=== PATIENT | male | born 1945 | race Caucasian/White ===

== ENCOUNTER 2023-03-13 10:12 | Inpatient (IN) ==
[2023-03-13] MEDS ORDERED: ONDANSETRON 4 MG/2 ML VIAL IV ONE (10:51)
[2023-03-13 11:19] LABS: POC Calcium, Ionized 1.16 (1.16-1.32); POC Creatinine 1.4 (0.6-1.2); POC Potassium 4.4 (3.3-5.1)
[2023-03-13 11:26] LABS: Basophils # (Auto) 0.02 K/mcL (0.00-0.30); Basophils % (Auto) 0.3 % (0.0-2.0); Eosinophils # (Auto) 0.05 K/mcL (0.00-0.70); Eosinophils % (Auto) 0.8 % (0.0-7.0); Hematocrit 39.9 % (40.1-51.0); Hemoglobin 14.1 g/dL (13.7-17.5); Lymphocytes # (Auto) 0.91 K/mcL (1.50-4.80); Lymphocytes % (Auto) 14.8 % (15.5-49.0); Mean Cell Volume 82.6 fL (80.0-100.0); Mean Corpuscular HGB Conc 35.3 g/dL (31.0-36.0); Mean Platelet Volume 9.9 fL (8.8-12.5); Monocytes # (Auto) 0.85 K/mcL (0.10-0.90); Monocytes % (Auto) 13.8 % (1.0-12.0); Neutrophils % (Auto) 70.1 % (38.0-78.0); Platelet Count 253 K/mcL (140-440); RBC 4.83 M/mcL (4.63-6.08); Red Cell Distribution Width 12.9 % (11.5-14.5); WBC 6.2 K/mcL (4.5-11.0)
[2023-03-13 11:52] LABS: Appearance,Urine CLEAR (Clear); Bilirubin,Urine Negative (Negative); Color,Urine YELLOW; Culture Indicated,Urine No; Glucose,Urine (UA) 50 mg/dL (Negative); Ketones,Urine Negative (Negative); Leukocyte Esterase,Urine Negative /uL (Negative); Mucus,Urine FEW /hpf; Nitrate,Urine Negative (Negative); Protein,Urine 100 mg/dL (Negative); Specific Gravity,Urine 1.013 (1.000-1.035); Urine Hyaline Cast 1 /lph (0-2); Urine RBC 18 /hpf (0-3); Urine Squamous Epithelial Cell < 1 /hpf (0-4); Urine WBC 2 /hpf (0-4); Urobilinogen,Urine Negative
[2023-03-13 12:09] LABS: Creatinine,Urine Random 107.3 mg/dL (39.0-259.0)
[2023-03-13 12:35] LABS: ALT/SGPT 14 U/L (<40); AST/SGOT 25 U/L (<40); Albumin 4.1 gm/dL (3.2-5.2); Alkaline Phosphatase 62 U/L (39-117); Bilirubin,Direct < 0.2 mg/dL (0-0.3); Bilirubin,Total 0.5 mg/dL (0.1-1.0); Globulin 2.9 gm/dL (2.2-3.7)
[2023-03-13 12:38] LABS: Blood Urea Nitrogen 15 mg/dL (8-23); Calcium 9.7 mg/dL (8.6-10.4); Carbon Dioxide 26 mmol/L (22-30); Chloride 81 mmol/L (96-108); Glomerular Filtration Rate 57; Glucose 123 mg/dL (70-105)
[2023-03-13] MEDS ORDERED: ACETAMINOPHEN 325 MG TABLET PO ONE (12:42)
--- NOTE | 2023-03-13 13:51 | Emergency Department Note ---
Abdominal Pain HPI General Chief Complaint: Flank Pain Stated Complaint: kidney pain Time Seen by Provider: 03/13/23 10:13 Source: patient Mode of arrival: ambulatory Limitations: no limitations History of Present Illness HPI Narrative: Narrative: This is an 78-year-old male who presents to the emergency department with right flank pain and intermittent right suprapubic pain. States the pain comes and goes without obvious alleviating or exacerbating factors he has been applying warm compress to his right flank. There is no skin changes there is no fevers chills he does report some difficulty initiating a stream with urination but no gross hematuria. Related Data Previous Rx's Medication Instructions Recorded blood-glucose meter ([employer] #1 ea 09/08/17 Verio IQ Meter kit) lancets 30 gauge (OneTouch Delica #100 ea 03/18/18 Lancets) metformin 850 mg tablet 850 mg PO BID #180 tabs 03/24/18 zolpidem 10 mg tablet 10 mg PO QHS PRN insomnia #60 tabs 03/24/18 pravastatin 40 mg tablet 40 mg PO QHS #90 tabs 09/05/18 blood sugar diagnostic (OneTouch #100 ea 10/13/18 Verio test strips) benazepril 20 1 tab PO QDAY HTN and protein in 10/19/22 mg-hydrochlorothiazide 12.5 mg the urine #90 tabs tablet Allergies Allergy/AdvReac Type Severity Reaction Status Date / Time Procaine [From Novocain] Allergy Severe Unconscious Verified 03/13/23 10:45 Review of Systems ROS ROS Narrative: Narrative: All systems ED: reviewed and negative except as stated. 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) DM w/o complication type II (Chronic) Hyperlipidemia (Chronic) Benign essential HTN (Chronic) Kidney stone (Chronic) Pituitary adenoma (Chronic) Prostatitis (Chronic 08/31/06) Renal colic (Chronic) Renal cyst (Chronic 03/25/15) Diabetes mellitus (Chronic) Hematuria (Chronic) Stage 3 chronic kidney disease (Acute) CKD stage G3a/A2, GFR 45-59 and albumin creatinine ratio 30-299 mg/g (Chronic) Hematuria with proteinuria (Chronic) Acute hyponatremia (Acute) Medical History (Updated 03/13/23 @ 14:07 by Valente Kauffman MD) Benign essential HTN HILDA hydrochlorothiazide well-controlled on a combination BPH (benign prostatic hypertrophy) with urinary obstruction (08/23/06) Diabetes mellitus DM w/o complication type II routine labs, continue same meds, review in 3mos. Glomerulonephritis Gynecomastia Hyperlipidemia Kidney stone Obstructed, bladder neck (07/28/13) Pituitary adenoma Prostatitis (08/31/06) Renal colic Renal cyst (03/25/15) CT done at [facility] Retention, urine Sinusitis likely secondary to tooth abscess, now resolved with appropriate dental care UTI (lower urinary tract infection) (05/02/07) Vasovagal syncope related to dehydration and likely iatrogenic hypotension. Surgical History Bladder neck contracture Incision History of colonoscopy (12/16/12) History of prostate surgery (10/18/12) [facility] History of tonsillectomy Hx of knee surgery S/P cystourethroscopy with dilation of urethral stricture (10/18/12) [facility] Family History Unknown No problems noted. Social History Smoking Status: Never smoker Alcohol Intake Frequency: does not drink Substance Use: does not use Exam Narrative Narrative: Narrative: Vital signs noted General: Awake. Alert. No distress. HEENT: NCAT PERRL EOMI. No conjunctivitis. Membranes moist. Neck: Supple, trachea midline Cardiovascular: RRR. No murmur. No rubs. No gallops. Respiratory: No respiratory distress. Breath sounds equal. Lungs clear. Gastrointestinal: Soft. No tenderness Right CVA tenderness to palpation Musculoskeletal: No pain. No soft tissue swelling. Good ROM. No signs injury Skin: Warm. Dry. No rash Neurologic: Alert and oriented x3 moves all extremities equally and fully, speech is fluent face is symmetric General Limitations: no limitations Course Vital Signs Vital signs: Vital Signs Temperature 97.0 F 03/13/23 10:14 Pulse Rate 97 H 03/13/23 10:14 Respiratory Rate 16 03/13/23 10:14 Blood Pressure 133/84 03/13/23 10:14 Pulse Oximetry (%) 96 03/13/23 10:14 Oxygen Delivery Method Room Air 03/13/23 10:14 Temperature 97.0 F 03/13/23 10:14 Pulse Rate 81 03/13/23 13:28 Respiratory Rate 16 03/13/23 10:14 Blood Pressure 136/86 03/13/23 13:00 Pulse Oximetry (%) 100 03/13/23 13:28 Oxygen Delivery Method Room Air 03/13/23 10:14 MDM MDM Narrative Medical decision making narrative: Narrative: This is an 78-year-old male who presents to the emergency department with right flank pain and suprapubic pain states his symptoms have been going on for about a week. After review of patient's chart patient does see Dr. Hooker for microscopic hematuria and proteinuria. It is kind of unclear if his flank and bladder pain is new today. Urine analysis is not suggestive of infection. I did obtain a noncontrasted CT scan which did not show any evidence of urinary tr act calculi. There was no obvious hydronephrosis. Patient was emptying his bladder his postvoid residual was 90 cc. Patient's kidney function today is not significantly changed from his baseline. His GFR appears to be consistent with the last few lab draws. Patient's sodium on [id number] testing was 120 the lab confirmed that it was 118 this is in the setting of normal blood glucose. Patient is slightly hypoosmolar. Overall the patient appears euvolemic. The patient does state that he has been increasing his water intake because he thought that that would help his kidney and bladder pain. Does not appear patient is on any thiazide diuretics. This is is significantly lower than just a few months ago. Lab Data 03/13/23 10:42 03/13/23 10:42 Labs: Lab Results 03/13/23 03/13/23 03/13/23 Range/Units 10:36 10:42 10:42 WBC 6.2 (4.5-11.0) K/mcL RBC 4.83 (4.63-6.08) M/mcL Hgb 14.1 (13.7-17.5) g/dL Hct 39.9 L (40.1-51.0) % POC Hct (41-55) MCV 82.6 (80.0-100.0) fL MCH 29.2 (26.0-34.0) pg MCHC 35.3 (31.0-36.0) g/dL RDW 12.9 (11.5-14.5) % Plt Count 253 (140-440) K/mcL MPV 9.9 (8.8-12.5) fL Immature Gran % (Auto) 0.2 (0.0-0.5) % Neut % (Auto) 70.1 (38.0-78.0) % Lymph % (Auto) 14.8 L (15.5-49.0) % [place] % (Auto) 13.8 H (1.0-12.0) % Eos % (Auto) 0.8 (0.0-7.0) % Baso % (Auto) 0.3 (0.0-2.0) % Lymph # (Auto) 0.91 L (1.50-4.80) K/mcL [place] # (Auto) 0.85 (0.10-0.90) K/mcL Eos # (Auto) 0.05 (0.00-0.70) K/mcL Baso # (Auto) 0.02 (0.00-0.30) K/mcL Immature Gran # 0.01 (0.00-0.05) K/mcl Absolute Neutrophils 4.32 (1.80-8.00) K/mcL POC Sodium (133-145) Sodium 118 L* (133-145) mmol/L POC Potassium (3.3-5.1) Potassium 4.4 (3.3-5.1) mmol/L POC Chloride (96-108) Chloride 81 L (96-108) mmol/L Carbon Dioxide 26 (22-30) mmol/L POC Total CO2 (22-30) Anion Gap 11.0 (8.0-16.0) POC BUN (6-20) BUN 15 (8-23) mg/dL Creatinine 1.2 (0.7-1.2) mg/dL POC Creatinine (0.6-1.2) GFR Calculation 57 Glucose 123 H (70-105) mg/dL POC Glucose (70-105) Osmolality 267 L (280-300) mOSM/kg Calcium 9.7 (8.6-10.4) mg/dL POC WB Ioniz Calcium (1.16-1.32) Total Bilirubin 0.5 (0.1-1.0) mg/dL Direct Bilirubin < 0.2 (0-0.3) mg/dL AST 25 (<40) U/L ALT 14 (<40) U/L Alkaline Phosphatase 62 (39-117) U/L Total Protein 7.0 (5.9-8.4) gm/dL Albumin 4.1 (3.2-5.2) gm/dL Globulin 2.9 (2.2-3.7) gm/dL Lipase 30 (7-60) U/L Urine Color Urine Appearance (Clear) Urine pH (5.0-9.0) Ur Specific [place] (1.000-1.035) Urine Protein (Negative) mg/dL Urine Glucose (UA) (Negative) mg/dL Urine Ketones (Negative) mg/dL Urine Occult Blood (Negative) mg/dL Urine Nitrate (Negative) Urine Bilirubin (Negative) mg/dL Urine Urobilinogen mg/dL Ur Leukocyte Esterase (Negative) /uL Urine RBC (0-3) /hpf Urine WBC (0-4) /hpf Ur Squamous Epith Cells (0-4) /hpf Urine Bacteria (0) /hpf Hyaline Casts (0-2) /lph Urine Mucus (None) /hpf Ur Culture Indicated? Urine Osmolality (80-1000) mOSM/kg Ur Random Creatinine (39.0-259.0) mg/dL Ur Random Sodium mmol/L Urine Urea Nitrogen 490 mg/dL 03/13/23 03/13/23 03/13/23 Range/Units 11:01 11:02 11:25 WBC (4.5-11.0) K/mcL RBC (4.63-6.08) M/mcL Hgb (13.7-17.5) g/dL Hct (40.1-51.0) % POC Hct 45.0 (41-55) MCV (80.0-100.0) fL MCH (26.0-34.0) pg MCHC (31.0-36.0) g/dL RDW (11.5-14.5) % Plt Count (140-440) K/mcL MPV (8.8-12.5) fL Immature Gran % (Auto) (0.0-0.5) % Neut % (Auto) (38.0-78.0) % Lymph % (Auto) (15.5-49.0) % [place] % (Auto) (1.0-12.0) % Eos % (Auto) (0.0-7.0) % Baso % (Auto) (0.0-2.0) % Lymph # (Auto) (1.50-4.80) K/mcL [place] # (Auto) (0.10-0.90) K/mcL Eos # (Auto) (0.00-0.70) K/mcL Baso # (Auto) (0.00-0.30) K/mcL Immature Gran # (0.00-0.05) K/mcl Absolute Neutrophils (1.80-8.00) K/mcL POC Sodium 120 L (133-145) Sodium (133-145) mmol/L POC Potassium 4.4 (3.3-5.1) Potassium (3.3-5.1) mmol/L POC Chloride 84 L (96-108) Chloride (96-108) mmol/L Carbon Dioxide (22-30) mmol/L POC Total CO2 26.0 (22-30) Anion Gap (8.0-16.0) POC BUN 17 (6-20) BUN (8-23) mg/dL Creatinine (0.7-1.2) mg/dL POC Creatinine 1.4 H (0.6-1.2) GFR Calculation Glucose (70-105) mg/dL POC Glucose 129 H (70-105) Osmolality (280-300) mOSM/kg Calcium (8.6-10.4) mg/dL POC WB Ioniz Calcium 1.16 (1.16-1.32) Total Bilirubin (0.1-1.0) mg/dL Direct Bilirubin (0-0.3) mg/dL AST (<40) U/L ALT (<40) U/L Alkaline Phosphatase (39-117) U/L Total Protein (5.9-8.4) gm/dL Albumin (3.2-5.2) gm/dL Globulin (2.2-3.7) gm/dL Lipase (7-60) U/L Urine Color Yellow Urine Appearance Clear (Clear) Urine pH 5.0 (5.0-9.0) Ur Specific [place] 1.013 (1.000-1.035) Urine Protein 100 A (Negative) mg/dL Urine Glucose (UA) 50 A (Negative) mg/dL Urine Ketones Negative (Negative) mg/dL Urine Occult Blood 0.20 (Negative) mg/dL Urine Nitrate Negative (Negative) Urine Bilirubin Negative (Negative) mg/dL Urine Urobilinogen Negative mg/dL Ur Leukocyte Esterase Negative (Negative) /uL Urine RBC 18 H (0-3) /hpf Urine WBC 2 (0-4) /hpf Ur Squamous Epith Cells < 1 (0-4) /hpf Urine Bacteria None (0) /hpf Hyaline Casts 1 (0-2) /lph Urine Mucus Few A (None) /hpf Ur Culture Indicated? No Urine Osmolality 371 (80-1000) mOSM/kg Ur Random Creatinine 107.3 (39.0-259.0) mg/dL Ur Random Sodium 25 mmol/L Urine Urea Nitrogen mg/dL Discharge Plan Patient/Caregiver Discharge Instructions Pt seen by MUSIC TYPOGRAPHER/PA only: No Clinical Impression: Acute hyponatremia Patient Disposition: Xfer As Inpt ([facility]) Condition: Fair Follow up with: Alexsander Luong MD [Primary Care Provider] - Prescriptions: No Action (DME) lancets [[employer]20[employer] Delica Lancets] 30 gauge misc See Dose Instructions .ROUTE .MEDSUPPLY Qty: 100 4RF Dose Instruction: As directed Rx Instructions: Use to test blood sugar twice dialy. zolpidem 10 mg tablet 10 mg PO QHS PRN (Reason: insomnia) Qty: 60 3RF metformin 850 mg tablet 850 mg PO BID Qty: 180 3RF pravastatin 40 mg tablet 40 mg PO QHS Qty: 90 3RF (DME) blood sugar diagnostic [Grid20[employer]uch Verio test strips] strip See Dose Instructions .ROUTE .MEDSUPPLY Qty: 100 4RF Dose Instruction: As directed Rx Instructions: Use to test blood sugars twice daily. (DME) blood-glucose meter [[employer]20[employer]uch Verio IQ Meter] kit See Dose Instructions .ROUTE .MEDSUPPLY Qty: 1 0RF Dose Instruction: As directed Rx Instructions: As directed benazepril-hydrochlorothiazide 20-12.5 mg tablet 1 tab PO QDAY Qty: 90 3RF Rx Instructions: New dose
--- NOTE | 2023-03-13 14:45 | Internal Med History&Physical ---
HPI History of Present Illness Patient information: Note initiated : 03/13/23 at 2:40 pm Service Date, if different from initiated Date: [] Patient: Tino Nichols a 78 y/o M admitted on for kidney pain. Chief Complaint: [Flank pain, malaise] Chief complaint: Flank pain History of present illness: Mr. Nichols is a 78 year old M with a past medical history significant for BPH, diabetes mellitus type 2, hyperlipidemia, and CKD stage III who presents to the hospital with flank pain, bladder spasms and worsening electrolyte derangements. The patient states that he went to his primary care physician on Wednesday as he was having flank pain and bladder irritation. He had labs and a work-up performed however did not hear back the rest of the week. Last night, the patient experienced severe bladder spasms once again and decided to come into the ER for further management and evaluation. The patient denies any fevers or chills. He denies any hematuria. He states that he has been having to use heat pad continuously and is also taking Tylenol for the discomfort. On arrival he was hemodynamically stable and afebrile. Initial labs revealed a sodium of 118, and a creatinine of 1.4. CT abdomen pelvis is pending. Hospitalist service was asked admit the patient for further management and evaluation of his hyponatremia. Review of Systems All systems: reviewed and no additional remarkable complaints except as stated Constitutional Constitutional: Present as per HPI EENT Eyes: Present as per HPI; Absent blurry vision Cardiovascular Cardiovascular: Present as per HPI; Absent chest pain, dyspnea, dyspnea on exertion, leg edema or palpatations Respiratory Respiratory: Present as per HPI; Absent cough, dyspnea, dyspnea on exertion, wheezing or stridor Gastrointestinal Gastrointestinal: Present as per HPI; Absent abdominal pain, diarrhea, dysphagia, hematemesis, melena, nausea or vomiting Musculoskeletal Musculoskeletal: Present as per HPI; Absent joint swelling, limited range of motion, muscle cramps, muscle weakness or myalgias Integumentary Integumentary: Present as per HPI; Absent erythema, new lesions, rash or wounds Neurological Neurological: Present as per HPI; Absent abnormal gait, behavioral changes, focal weakness, headache(s), loss of vision, numbness, sensory deficit or syncope Endocrine Endocrine: Absent change in body appearance, fatigue or heat intolerance Hematologic/Lymphatic Hematologic/Lymphatic: Present as per HPI PFSH PFSH All Active Problems (Updated 03/13/23 @ 14:07 by Valente Kauffman MD) Obstructed, 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) DM w/o complication type II (Chronic) Hyperlipidemia (Chronic) Benign essential HTN (Chronic) Kidney stone (Chronic) Pituitary adenoma (Chronic) Prostatitis (Chronic 08/31/06) Renal colic (Chronic) Renal cyst (Chronic 03/25/15) Diabetes mellitus (Chronic) Hematuria (Chronic) Stage 3 chronic kidney disease (Acute) CKD stage G3a/A2, GFR 45-59 and albumin creatinine ratio 30-299 mg/g (Chronic) Hematuria with proteinuria (Chronic) Acute hyponatremia (Acute) Medical History (Updated 03/13/23 @ 14:07 by Valente Kauffman MD) Benign essential HTN HILDA hydrochlorothiazide well-controlled on a combination BPH (benign prostatic hypertrophy) with urinary obstruction (08/23/06) Diabetes mellitus DM w/o complication type II routine labs, continue same meds, review in 3mos. Glomerulonephritis Gynecomastia Hyperlipidemia Kidney stone Obstructed, bladder neck (07/28/13) Pituitary adenoma Prostatitis (08/31/06) Renal colic Renal cyst (03/25/15) CT done at [facility] Retention, urine Sinusitis likely secondary to tooth abscess, now resolved with appropriate dental care UTI (lower urinary tract infection) (05/02/07) Vasovagal syncope related to dehydration and likely iatrogenic hypotension. Surgical History Bladder neck contracture Incision History of colonoscopy (12/16/12) History of prostate surgery (10/18/12) [facility] History of tonsillectomy Hx of knee surgery S/P cystourethroscopy with dilation of urethral stricture (10/18/12) [facility] Family History Unknown No problems noted. Social History adopted: Yes household members: spouse housing: house marital status: occupational status: retired other: Has children frequency: 3-4 times per week smoking status: Never smoker alcohol intake frequency: does not drink substance use type: does not use MEDS/ALLERGIES Home Medications and Allergies Home Medications Medication Instructions Recorded Confirmed Type blood-glucose meter (OneTouch #1 ea 09/08/17 01/25/23 Rx Verio IQ Meter kit) lancets 30 gauge (OneTouch Delica #100 ea 03/18/18 01/25/23 Rx Lancets) metformin 850 mg tablet 850 mg PO BID #180 tabs 03/24/18 01/25/23 Rx zolpidem 10 mg tablet 10 mg PO QHS PRN insomnia #60 tabs 03/24/18 01/25/23 Rx pravastatin 40 mg tablet 40 mg PO QHS #90 tabs 09/05/18 01/25/23 Rx blood sugar diagnostic (OneTouch #100 ea 10/13/18 01/25/23 Rx Verio test strips) benazepril 20 1 tab PO QDAY HTN and protein in 10/19/22 01/25/23 Rx mg-hydrochlorothiazide 12.5 mg the urine #90 tabs tablet Allergies Allergy/AdvReac Type Severity Reaction Status Date / Time Procaine [From Novocain] Allergy Severe Unconscious Verified 03/13/23 10:45 EXAM Constitutional Vitals: Temp Pulse Resp BP Pulse Ox O2 Del Method 97.0 F 81 16 136/86 100 Room Air 03/13/23 10:14 03/13/23 13:28 03/13/23 10:14 03/13/23 13:00 03/13/23 13:28 03/13/23 10:14 General appearance: average body habitus Head Head exam: Present atraumatic, normal inspection and normocephalic Eye Eye exam: Present EOMI, normal appearance and PERRL; Absent conjunctival injection ENT ENT exam: Present normal exam; Absent mucous membranes dry Neck Neck exam: Present full ROM; Absent lymphadenopathy Respiratory Respiratory exam: Present normal respiratory exam and CTAB; Absent decreased breath sounds, respiratory distress or wheezes Cardiovascular Cardiovascular exam: Present normal rate and rhythm and RRR; Absent JVD GI/Abdominal GI/Abdominal exam: Present normal bowel sounds and soft; Absent diminished bowel sounds, distended, guarding, mass, rebound or tenderness Neurological Exam Neurological exam: Present alert, CN II-XII intact and oriented X3 Psychiatric Psychiatric exam: Present normal affect and normal mood Skin Skin exam: Present intact and warm; Absent erythema, pallor, petechiae or rash DATA Data Completed and Pending Labs: Labs from last 24 hours 03/13/23 03/13/23 03/13/23 11:25 11:02 11:01 WBC RBC Hgb Hct POC Hct 45.0 MCV MCH MCHC RDW Plt Count MPV Immature Gran % (Auto) Neut % (Auto) Lymph % (Auto) [place] % (Auto) Eos % (Auto) Baso % (Auto) Lymph # (Auto) [place] # (Auto) Eos # (Auto) Baso # (Auto) Immature Gran # Absolute Neutrophils POC Sodium 120 L Sodium POC Potassium 4.4 Potassium POC Chloride 84 L Chloride Carbon Dioxide POC Total CO2 26.0 Anion Gap POC BUN 17 BUN Creatinine POC Creatinine 1.4 H GFR Calculation Glucose POC Glucose 129 H Osmolality Calcium POC WB Ioniz Calcium 1.16 Total Bilirubin Direct Bilirubin AST ALT Alkaline Phosphatase Total Protein Albumin Globulin Lipase Urine Color Yellow Urine Appearance Clear Urine pH 5.0 Ur Specific [place] 1.013 Urine Protein 100 A Urine Glucose (UA) 50 A Urine Ketones Negative Urine Occult Blood 0.20 Urine Nitrate Negative Urine Bilirubin Negative Urine Urobilinogen Negative Ur Leukocyte Esterase Negative Urine RBC 18 H Urine WBC 2 Ur Squamous Epith Cells < 1 Urine Bacteria None Hyaline Casts 1 Urine Mucus Few A Ur Culture Indicated? No Urine Osmolality 371 Ur Random Creatinine 107.3 Ur Random Sodium 25 Urine Urea Nitrogen 03/13/23 03/13/23 03/13/23 10:42 10:42 10:36 WBC 6.2 RBC 4.83 Hgb 14.1 Hct 39.9 L POC Hct MCV 82.6 MCH 29.2 MCHC 35.3 RDW 12.9 Plt Count 253 MPV 9.9 Immature Gran % (Auto) 0.2 Neut % (Auto) 70.1 Lymph % (Auto) 14.8 L [place] % (Auto) 13.8 H Eos % (Auto) 0.8 Baso % (Auto) 0.3 Lymph # (Auto) 0.91 L [place] # (Auto) 0.85 Eos # (Auto) 0.05 Baso # (Auto) 0.02 Immature Gran # 0.01 Absolute Neutrophils 4.32 POC Sodium Sodium 118 L* POC Potassium Potassium 4.4 POC Chloride Chloride 81 L Carbon Dioxide 26 POC Total CO2 Anion Gap 11.0 POC BUN BUN 15 Creatinine 1.2 POC Creatinine GFR Calculation 57 Glucose 123 H POC Glucose Osmolality 267 L Calcium 9.7 POC WB Ioniz Calcium Total Bilirubin 0.5 Direct Bilirubin < 0.2 AST 25 ALT 14 Alkaline Phosphatase 62 Total Protein 7.0 Albumin 4.1 Globulin 2.9 Lipase 30 Urine Color Urine Appearance Urine pH Ur Specific [place] Urine Protein Urine Glucose (UA) Urine Ketones Urine Occult Blood Urine Nitrate Urine Bilirubin Urine Urobilinogen Ur Leukocyte Esterase Urine RBC Urine WBC Ur Squamous Epith Cells Urine Bacteria Hyaline Casts Urine Mucus Ur Culture Indicated? Urine Osmolality Ur Random Creatinine Ur Random Sodium Urine Urea Nitrogen 490 A/P Assessment and plan (1) BPH (benign prostatic hypertrophy) with urinary obstruction: Status: Chronic (2) DM w/o complication type II: Status: Chronic Comment: routine labs, continue same meds, review in 3mos. Qualifiers: Diabetes mellitus rodent exterminator insulin use: without mcfp use Qualifie d Code(s): E11.9 - Type 2 diabetes mellitus without complications (3) Hyperlipidemia: Status: Chronic (4) Benign essential HTN: Status: Chronic Comment: HILDA hydrochlorothiazide well-controlled on a combination (5) Stage 3 chronic kidney disease: Status: Acute (6) Acute hyponatremia: Status: Acute Narrative A/P Narrative: At this point it is unclear if the patient has renal calculi, prostatitis, or urinary tract infection. He is on BenzePrOhydrochlorothiazide which may also be contributing to his hyponatremia. He has had poor p.o. intake as of late due to the malaise. 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 It is a mixed picture. We will try IV fluids and monitor BMP every 6 hours. We will hold his home antihypertensives. We will follow-up on CT imaging and urinalysis. Time Spent With Patient Time: Total time spent is greater than 50% in coordination of care (as documented) at patient's floor/unit and/or counseling patient: Subsequent: Total time with patient: 50 - 65 Minutes
[2023-03-13] MEDS ORDERED: ONDANSETRON 4 MG/2 ML VIAL IV PRN (17:26)
[2023-03-13] MEDS ORDERED: SENNOSIDES 1 TABLET PO PRN (17:26)
[2023-03-13] MEDS ORDERED: LACTULOSE 20 GM/30 ML ORAL.SOL PO PRN (17:26)
[2023-03-13] MEDS ORDERED: 0.9 % SODIUM CHLORIDE 1,000 ML IV SCH (17:26)
[2023-03-13] MEDS ORDERED: cefTRIAXone 1 GM VIAL IV ONE (17:26)
[2023-03-13] MEDS: 0.9 % SODIUM CHLORIDE 10 ML SYRINGE IV SCH ×2 (17:57→21:25)
--- NOTE | 2023-03-13 18:02 | Cat Scan Report ---
CLINICAL INFORMATION: Right flank pain. History of stones COMPARISON: None. TECHNIQUE: 0.625 mm helical slices were obtained from the mid heart through the subtrochanteric regions. Following reconstruction, 2.5 mm sagittal, coronal and axial reformatted images were processed and reviewed at bone and soft tissue windows.The exam was performed using radiation dose optimization techniques including, but not limited to, automated exposure control, adjustment of the mA and/or kV according to patient size and use of iterative reconstruction technique. FINDINGS: The lung bases are clear. No effusions. The visualized heart is grossly normal. Abdominal images show the noncontrasted gallbladder and bile ducts, liver, both kidneys, adrenal glands, spleen, pancreas and aorta are normal in size, configuration and attenuation without focal lesion. There is no free air, free fluid or adenopathy. Pelvic images show normal noncontrasted urinary bladder, prostate and seminal vesicles. Large amount of stool is present within the colon and there are multiple sigmoid diverticuli noted the diverticulitis. The region of the appendix, small bowel and stomach are normal. Bone windows show no osseous abnormality. IMPRESSION: Large amount of colonic stool. No acute disease Interpreted and Authenticated by: Tyrone Campbell 03/13/23
[2023-03-13 19:59] LABS: Blood Urea Nitrogen 13 mg/dL (8-23); Calcium 9.4 mg/dL (8.6-10.4); Carbon Dioxide 25 mmol/L (22-30); Chloride 81 mmol/L (96-108); Glomerular Filtration Rate 63; Glucose 103 mg/dL (70-105)
[2023-03-13] MEDS: SIMVASTATIN 20 MG TABLET PO SCH (21:25)
[2023-03-13] MEDS: DOCUSATE SODIUM 100 MG CAPSULE PO SCH (21:25)
[2023-03-13] MEDS: ZOLPIDEM 5 MG TABLET PO PRN (21:25)
[2023-03-14 00:10] LABS: Blood Urea Nitrogen 14 mg/dL (8-23); Calcium 8.8 mg/dL (8.6-10.4); Carbon Dioxide 25 mmol/L (22-30); Chloride 85 mmol/L (96-108); Glomerular Filtration Rate 63; Glucose 92 mg/dL (70-105)
[2023-03-14] MEDS: 0.9 % SODIUM CHLORIDE 10 ML SYRINGE IV SCH ×3 (05:04→20:25)
[2023-03-14 05:14] LABS: Basophils # (Auto) 0.03 K/mcL (0.00-0.30); Basophils % (Auto) 0.5 % (0.0-2.0); Eosinophils # (Auto) 0.15 K/mcL (0.00-0.70); Eosinophils % (Auto) 2.6 % (0.0-7.0); Hematocrit 38.4 % (40.1-51.0); Hemoglobin 13.3 g/dL (13.7-17.5); Lymphocytes # (Auto) 1.59 K/mcL (1.50-4.80); Lymphocytes % (Auto) 27.9 % (15.5-49.0); Mean Cell Volume 82.9 fL (80.0-100.0); Mean Corpuscular HGB Conc 34.6 g/dL (31.0-36.0); Mean Platelet Volume 9.7 fL (8.8-12.5); Monocytes # (Auto) 0.73 K/mcL (0.10-0.90); Monocytes % (Auto) 12.8 % (1.0-12.0); Neutrophils % (Auto) 55.8 % (38.0-78.0); Platelet Count 232 K/mcL (140-440); RBC 4.63 M/mcL (4.63-6.08); Red Cell Distribution Width 13.1 % (11.5-14.5); WBC 5.7 K/mcL (4.5-11.0)
--- NOTE | 2023-03-14 09:42 | Internal Med Progress Note ---
SUBJECTIVE Subjective Patient information: Note initiated : 03/14/23 at 9:38 am Service Date, if different from initiated Date: [] Patient: Tino Nichols a 78 y/o M admitted on 03/13/23 for kidney pain. Chief Complaint: [Flank pain] Principal diagnosis: SIADH Interval history: History of present illness: Mr. Nichols is a 78 year old M with a past medical history significant for BPH, diabetes mellitus type 2, hyperlipidemia, and CKD stage III who presents to the hospital with flank pain, bladder spasms and worsening electrolyte derangements. The patient states that he went to his primary care physician on Wednesday as he was having flank pain and bladder irritation. He had labs and a work-up performed however did not hear back the rest of the week. Last night, the patient experienced severe bladder spasms once again and decided to come into the ER for further management and evaluation. The patient denies any fevers or chills. He denies any hematuria. He states that he has been having to use heat pad continuously and is also taking Tylenol for the discomfort. On arrival he was hemodynamically stable and afebrile. Initial labs revealed a sodium of 118, and a creatinine of 1.4. CT abdomen pelvis is pending. Hospitalist service was asked admit the patient for further management and evaluation of his hyponatremia. 03/14: The patient is quite forgetful and fixates on his home medications. The RN was present at the bedside to discuss plan of care. There are concerns that the patient may have cognitive impairment and undiagnosed dementia. Constitutional Vitals: Vital Signs Temp Pulse Resp BP Pulse Ox O2 Del Method 97.7 F 68 16 118/81 97 Room Air 03/14/23 04:00 03/14/23 06:03 03/14/23 06:03 03/14/23 06:03 03/14/23 06:03 03/14/23 06:03 Period Temp Pulse Resp BP Sys/Bush Pulse Ox O2 Del Method O2 Flow Rate Last 24 Hr 97.0 F-99.0 F 65-97 14-17 99-169/68-93 96-100 Room Air-Room Air Intake and Output 03/13/23 03/14/23 03/14/23 19:59 03:59 11:59 Intake Total 693 Output Total 375 900 325 Balance -375 -207 -325 Weight 70.307 kg 71.078 kg Intake & Output: Intake & Output 03/13/23 03/14/23 03/14/23 19:59 03:59 11:59 Intake Total 693 Output Total 375 900 325 Balance - Weight 70.307 kg 71.078 kg Intake: IV 333 Sodium Chloride 0.9% 1,000 ml @ 333 100 mls/hr IV .Q10H [facility] Rx#: [id number] Oral 360 Output: Void Amount 375 081 325 Other: Meal orange sherbet Percent of Meal Consumed 100% Feeding Ability Independent Urine Appearance Clear Clear Clear Urine Color Light Chanel Yellow Yellow Pale Pale Urine Odor Normal Normal # Voids 1 # [place] 0 Head Head exam: Present atraumatic and normal inspection Eye Eye exam: Present normal appearance ENT ENT exam: Present mucous membranes moist, normal exam and normal external ear exam Neck Neck exam: Present normal inspection Respiratory Respiratory exam: Present normal respiratory exam Cardiovascular Cardiovascular exam: Present normal rate and rhythm GI/Abdominal GI/Abdominal exam: Present normal bowel sounds Back Exam Back exam: Present normal inspection Neurological Exam Neurological exam: Present alert and oriented X3 Skin Skin exam: Present intact and warm OBJ DATA Labs 03/14/23 04:49 03/13/23 23:23 Labs: Abnormal Lab Results 03/14/23 03/13/23 03/13/23 04:49 23:23 17:53 Hgb 13.3 L Hct 38.4 L Lymph % (Auto) [place] % (Auto) 12.8 H Lymph # (Auto) POC Sodium Sodium 123 L 117 L* POC Chloride Chloride 85 L 81 L POC Creatinine Glucose POC Glucose Osmolality Urine Protein Urine Glucose (UA) Urine RBC Urine Mucus 03/13/23 03/13/23 03/13/23 11:02 11:01 10:42 Hgb Hct Lymph % (Auto) [place] % (Auto) Lymph # (Auto) POC Sodium 120 L Sodium 118 L* POC Chloride 84 L Chloride 81 L POC Creatinine 1.4 H Glucose 123 H POC Glucose 129 H Osmolality 267 L Urine Protein 100 A Urine Glucose (UA) 50 A Urine RBC 18 H Urine Mucus Few A 03/13/23 10:42 Hgb Hct 39.9 L Lymph % (Auto) 14.8 L [place] % (Auto) 13.8 H Lymph # (Auto) 0.91 L POC Sodium Sodium POC Chloride Chloride POC Creatinine Glucose POC Glucose Osmolality Urine Protein Urine Glucose (UA) Urine RBC Urine Mucus Meds: Medications Ceftriaxone Sodium (Ceftriaxone 1 Gm Vial) 1 gm IV Q24H [facility]; Protocol Docusate Sodium (Docusate Sodium 100 Mg Capsule) 100 mg PO BID [facility] Last Admin: 03/13/23 21:25 Dose: 100 mg Enoxaparin Sodium (Enoxaparin 40 Mg/0.4 Ml Syringe) 40 mg SQ DAILY [facility] Lactulose (Lactulose 20 Gm/30 Ml Oral.Afshan) 10 gm PO DAILYP PRN PRN Reason: Constipation Ondansetron HCl (Ondansetron 4 Mg/2 Ml Vial) 4 mg IV Q4HP PRN; Protocol PRN Reason: Nausea And Vomiting Senna (Sennosides 1 Tablet) 2 tab PO HSP PRN PRN Reason: Constipation Simvastatin (Simvastatin 20 Mg Tablet) 20 mg PO HS [facility] Last Admin: 03/13/23 21:25 Dose: 20 mg Sodium Chloride (0.9 % Sodium Chloride 10 Ml Syringe) 10 ml IV Q8 [facility] Last Admin: 03/14/23 05:04 Dose: 10 ml Zolpidem Tartrate (Zolpidem 5 Mg Tablet) 10 mg PO HSP PRN PRN Reason: Insomnia Last Admin: 03/13/23 21:25 Dose: 10 mg A/P Assessment and plan (1) BPH (benign prostatic hypertrophy) with urinary obstruction: Status: Chronic (2) DM w/o complication type II: Status: Chronic Comment: routine labs, continue same meds, review in 3mos. Qualifiers: Diabetes mellitus termite exterminator helper insulin use: without halfway use Qualified Code(s): E11.9 - Type 2 diabetes mellitus without complications (3) Hyperlipidemia: Status: Chronic (4) Benign essential HTN: Status: Chronic Comment: HILDA hydrochlorothiazide well-controlled on a combination (5) Stage 3 chronic kidney disease: Status: Acute (6) Acute hyponatremia: Status: Acute Narrative A/P Narrative: At this point it is unclear if the patient has renal calculi, prostatitis, or urinary tract infection. He is on BenzePrOhydrochlorothiazide which may also be contributing to his hyponatremia. He has had poor p.o. intake as of late due to the malaise. The patient's urine osmolality is less than 275, his urine sodium is greater than 20 and his urine osmolality is greater than 100 con sistent with SIADH. It is a mixed picture. We will try IV fluids and monitor BMP every 6 hours. We will hold his home antihypertensives. We will follow-up on CT imaging and urinalysis. #SIADH -There was no component of hypovolemia and IVF did not help as Na dropped slightly to 117. IVF were discontinued -The Na has improved to 123 this AM -Check BMP q12h -Continue 800cc fluid restriction, and may consider adding salt tabs #HTN -Holding home ACEI/HCTZ #DM2 -Holding home metformin -Continue ISS #Bladder spasm/flank pain -CT abdomen and pelvis unrevealing. Patient remains afebrile with normal WBC of 5.7 -Awaiting urine cx results. Continue empiric CTX -May need to f/u with Urology in outpatient setting for possible bladder spasms Time Spent With Patient Time: Total time spent is greater than 50% in coordination of care (as documented) at patient's floor/unit and/or counseling patient: Subsequent: Total time with patient: 25 - 34 minutes QUALITY VTE Deep Vein Thrombosis/Pulmonary Embolism Present on Admission: No
[2023-03-14] MEDS: DOCUSATE SODIUM 100 MG CAPSULE PO SCH ×2 (10:15→20:25)
[2023-03-14] MEDS: ENOXAPARIN 40 MG/0.4 ML SYRINGE SQ SCH (10:15)
[2023-03-14] MEDS: cefTRIAXone 1 GM VIAL IV SCH (10:15)
--- NOTE | 2023-03-14 14:22 | Internal Med Progress Note ---
SUBJECTIVE Subjective Patient information: Note initiated : 03/14/23 at 2:19 pm Service Date, if different from initiated Date: [] Patient: Tino Nichols a 78 y/o M admitted on 03/13/23 for kidney pain. Chief Complaint: [] Principal diagnosis: SIADH Interval history: History of present illness: Mr. Nichols is a 78 year old M with a past medical history significant for BPH, diabetes mellitus type 2, hyperlipidemia, and CKD stage III who presents to the hospital with flank pain, bladder spasms and worsening electrolyte derangements. The patient states that he went to his primary care physician on Wednesday as he was having flank pain and bladder irritation. He had labs and a work-up performed however did not hear back the rest of the week. Last night, the patient experienced severe bladder spasms once again and decided to come into the ER for further management and evaluation. The patient denies any fevers or chills. He denies any hematuria. He states that he has been having to use heat pad continuously and is also taking Tylenol for the discomfort. On arrival he was hemodynamically stable and afebrile. Initial labs revealed a sodium of 118, and a creatinine of 1.4. CT abdomen pelvis is pending. Hospitalist service was asked admit the patient for further management and evaluation of his hyponatremia. 03/14: The patient is quite forgetful and fixates on his home medications. The RN was present at the bedside to discuss plan of care. There are concerns that the patient may have cognitive impairment and undiagnosed dementia. 03/15 Review of Systems: denies headache/fever/chills/nausea/vomiting/chest or abdominal pain/cough/dyspnea/diarrhea. Otherwise see above. PHYSICAL EXAM General: Alert, Awake, No acute Distress Eyes/N/T: EOMI, no scleral icterus, Head/Neck: neck supple, full ROM, CV: RRR, No murmurs, Pulm: Clear b/l, no wheezing/rhonchi/rales, no respiratory distress Abd: soft, nontender, +BS x4 Ext: no clubbing/cyanosis/edema, nontender Neuro: Alert, no focal deficits, moves all extremities, , sensations intact b/l upper/lower Psychiatric: Skin: warm/dry, normal color Constitutional Vitals: Vital Signs Temp Pulse Resp BP Pulse Ox O2 Del Method 98.9 F 83 14 125/76 97 Room Air 03/14/23 08:01 03/14/23 11:22 03/14/23 11:22 03/14/23 10:01 03/14/23 11:22 03/14/23 06:03 Period Temp Pulse Resp BP Sys/Bush Pulse Ox O2 Del Method O2 Flow Rate Last 24 Hr 97.7 F-99.0 F 65-83 14-18 99-169/68-91 96-100 Room Air-Room Air Intake and Output 03/14/23 03/14/23 03/14/23 03:59 11:59 19:59 Intake Total 693 Output Total 900 625 Balance -207 -625 Weight 71.078 kg Intake & Output: Intake & Output 03/14/23 03/14/23 03/14/23 03:59 11:59 19:59 Intake Total 693 Output Total 900 625 Balance -207 -625 Weight 71.078 kg Intake: IV 333 Sodium Chloride 0.9% 1,000 ml @ 333 100 mls/hr IV .Q10H [facility] Rx#: [id number] Oral 360 Output: Void Amount 900 625 Other: Meal Breakfast Percent of Meal Consumed 100% Feeding Ability Independent Urine Appearance Clear Clear Urine Color Yellow Yellow Pale Pale Urine Odor Normal # Voids 1 # Emeses 0 OBJ DATA Labs 03/14/23 04:49 03/14/23 04:49 Labs: Abnormal Lab Results 03/14/23 03/13/23 03/13/23 04:49 23:23 17:53 Hgb 13.3 L Hct 38.4 L Lymph % (Auto) [place] % (Auto) 12.8 H Lymph # (Auto) POC Sodium Sodium 123 L 117 L* POC Chloride Chloride 85 L 81 L POC Creatinine Glucose POC Glucose Osmolality Urine Protein Urine Glucose (UA) Urine RBC Urine Mucus 03/13/23 03/13/23 03/13/23 11:02 11:01 10:42 Hgb Hct Lymph % (Auto) [place] % (Auto) Lymph # (Auto) POC Sodium 120 L Sodium 118 L* POC Chloride 84 L Chloride 81 L POC Creatinine 1.4 H Glucose 123 H POC Glucose 129 H Osmolality 267 L Urine Protein 100 A Urine Glucose (UA) 50 A Urine RBC 18 H Urine Mucus Few A 03/13/23 10:42 Hgb Hct 39.9 L Lymph % (Auto) 14.[address] [place] % (Auto) 13.8 H Lymph # (Auto) 0.91 L POC Sodium Sodium POC Chloride Chloride POC Creatinine Glucose POC Glucose Osmolality Urine Protein Urine Glucose (UA) Urine RBC Urine Mucus Meds: Medications Ceftriaxone Sodium (Ceftriaxone 1 Gm Vial) 1 gm IV Q24H [facility]; Protocol Last Admin: 03/14/23 10:15 Dose: 1 gm Docusate Sodium (Docusate Sodium 100 Mg Capsule) 100 mg PO BID [facility] Last Admin: 03/14/23 10:15 Dose: 100 mg Enoxaparin Sodium (Enoxaparin 40 Mg/0.4 Ml Syringe) 40 mg SQ DAILY [facility] Last Admin: 03/14/23 10:15 Dose: 40 mg Lactulose (Lactulose 20 Gm/30 Ml Oral.Afshan) 10 gm PO DAILYP PRN PRN Reason: Constipation Ondansetron HCl (Ondansetron 4 Mg/2 Ml Vial) 4 mg IV Q4HP PRN; Protocol PRN Reason: Nausea And Vomiting Senna (Sennosides 1 Tablet) 2 tab PO HSP PRN PRN Reason: Constipation Simvastatin (Simvastatin 20 Mg Tablet) 20 mg PO HS [facility] Last Admin: 03/13/23 21:25 Dose: 20 mg Sodium Chloride (0.9 % Sodium Chloride 10 Ml Syringe) 10 ml IV Q8 [facility] Last Admin: 03/14/23 05:04 Dose: 10 ml Zolpidem Tartrate (Zolpidem 5 Mg Tablet) 10 mg PO HSP PRN PRN Reason: Insomnia Last Admin: 03/13/23 21:25 Dose: 10 mg A/P Narrative A/P Narrative: A: #SIADH -There was no component of hypovolemia and IVF did not help as Na dropped slightly to 117. IVF were discontinued -The Na -serial sodium -Continue fluid restriction, and start salt tabs #HTN/HLD: -d/c home HCTZ, restart ACEI if necessary for BP #DM2: -Holding home metformin -Continue ISS #CKD III: #Bladder spasm/flank pain -CT abdomen and pelvis unrevealing. Patient remains afebrile with normal WBC of 5.7 -Awaiting urine cx results. Continue empiric ABX -May need to f/u with Urology in outpatient setting for possible bladder sp asms #Anxiety: On Ativan #ppx: lovenox Time Spent With Patient Time: Total time spent is greater than 50% in coordination of care (as documented) at patient's floor/unit and/or counseling patient: QUALITY VTE Deep Vein Thrombosis/Pulmonary Embolism Present on Admission: No
[2023-03-14] MEDS ORDERED: LORazepam 0.5 MG TABLET PO PRN (14:25)
[2023-03-14 14:55] LABS: ALT/SGPT 14 U/L (<40); AST/SGOT 21 U/L (<40); Albumin 3.7 gm/dL (3.2-5.2); Albumin/Globulin Ratio 1.4 (1.0-2.3); Alkaline Phosphatase 51 U/L (39-117); Bilirubin,Direct < 0.2 mg/dL (0-0.3); Bilirubin,Total 0.4 mg/dL (0.1-1.0); Blood Urea Nitrogen 12 mg/dL (8-23); Calcium 9.1 mg/dL (8.6-10.4); Carbon Dioxide 25 mmol/L (22-30); Chloride 84 mmol/L (96-108); Globulin 2.6 gm/dL (2.2-3.7); Glomerular Filtration Rate 57; Glucose 101 mg/dL (70-105); Lactate Dehydrogenase 142 U/L (135-225); Phosphorous 2.8 mg/dL (2.5-4.5); Triglycerides 65 mg/dL (<150); Uric Acid 5.3 mg/dL (2.5-8.0)
[2023-03-14] MEDS ORDERED: SODIUM CHLORIDE 1 GM TABLET PO SCH (15:05)
[2023-03-14 15:18] LABS: POC Calcium, Ionized 1.17 (1.16-1.32); POC Creatinine 1.4 (0.6-1.2); POC Potassium 4.3 (3.3-5.1)
[2023-03-14 16:04] LABS: Blood Urea Nitrogen 18 mg/dL (8-23); Calcium 9.4 mg/dL (8.6-10.4); Carbon Dioxide 27 mmol/L (22-30); Chloride 86 mmol/L (96-108); Glomerular Filtration Rate 52; Glucose 123 mg/dL (70-105)
[2023-03-14] MEDS: metFORMIN 850 MG TABLET PO SCH (16:59)
[2023-03-14 19:33] LABS: POC Calcium, Ionized 1.18 (1.16-1.32); POC Creatinine 1.6 (0.6-1.2); POC Potassium 4.5 (3.3-5.1)
[2023-03-14] MEDS ORDERED: DEXTROSE 5% IN WATER 250 ML IV ONE (20:07)
[2023-03-14] MEDS: SIMVASTATIN 20 MG TABLET PO SCH (20:25)
[2023-03-14] MEDS ORDERED: PRAVASTATIN 40 MG TABLET PO SCH (21:00)
[2023-03-14] MEDS: ZOLPIDEM 5 MG TABLET PO PRN (21:23)
[2023-03-15] MEDS: 0.9 % SODIUM CHLORIDE 10 ML SYRINGE IV SCH ×3 (05:20→21:57)
[2023-03-15 07:04] LABS: Blood Urea Nitrogen 17 mg/dL (8-23); Calcium 9.2 mg/dL (8.6-10.4); Carbon Dioxide 26 mmol/L (22-30); Chloride 90 mmol/L (96-108); Glomerular Filtration Rate 57; Glucose 113 mg/dL (70-105)
[2023-03-15] MEDS: metFORMIN 850 MG TABLET PO SCH ×2 (07:12→16:55)
[2023-03-15] MEDS: DULoxetine 20 MG CAPSULE PO SCH (07:15)
[2023-03-15] MEDS: DOCUSATE SODIUM 100 MG CAPSULE PO SCH ×2 (08:07→21:56)
--- NOTE | 2023-03-15 08:09 | Internal Med Progress Note ---
SUBJECTIVE Subjective Patient information: Note initiated : 03/15/23 at 8:06 am Service Date, if different from initiated Date: [] Patient: Tino Nichols a 78 y/o M admitted on 03/13/23 for kidney pain. Chief Complaint: [] Principal diagnosis: SIADH Interval history: History of present illness: Mr. Nichols is a 78 year old M with a past medical history significant for BPH, diabetes mellitus type 2, hyperlipidemia, and CKD stage III who presents to the hospital with flank pain, bladder spasms and worsening electrolyte derangements. The patient states that he went to his primary care physician on Wednesday as he was having flank pain and bladder irritation. He had labs and a work-up performed however did not hear back the rest of the week. Last night, the patient experienced severe bladder spasms once again and decided to come into the ER for further management and evaluation. The patient denies any fevers or chills. He denies any hematuria. He states that he has been having to use heat pad continuously and is also taking Tylenol for the discomfort. On arrival he was hemodynamically stable and afebrile. Initial labs revealed a sodium of 118, and a creatinine of 1.4. CT abdomen pelvis is pending. Hospitalist service was asked admit the patient for further management and evaluation of his hyponatremia. 03/14: The patient is quite forgetful and fixates on his home medications. The RN was present at the bedside to discuss plan of care. There are concerns that the patient may have cognitive impairment and undiagnosed dementia. 03/15 Sodium up to 126 today. Fluid restrict and salt tabs. Sounds like patient has been drinking a generous amount of water each day at least a gallon. States slept on and off. But no other new complaints. Review of Systems: denies headache/fever/chills/nausea/vomiting/chest or abdominal pain/cough/dyspnea/diarrhea. Otherwise see above. PHYSICAL EXAM General: Alert, Awake, No acute Distress Eyes/N/T: EOMI, no scleral icterus, Head/Neck: neck supple, full ROM, CV: RRR, No murmurs, Pulm: Clear b/l, no wheezing/rhonchi/rales, no respiratory distress Abd: soft, nontender, +BS x4 Ext: no clubbing/cyanosis/edema, nontender Neuro: Alert, no focal deficits, moves all extremities, , sensations intact b/l upper/lower Psychiatric: Skin: warm/dry, normal color Constitutional Vitals: Vital Signs Temp Pulse Resp BP Pulse Ox O2 Del Method 97.5 F 70 15 120/72 97 Room Air 03/15/23 00:01 03/15/23 06:00 03/15/23 06:00 03/15/23 06:00 03/15/23 06:00 03/15/23 06:00 Period Temp Pulse Resp BP Sys/Bush Pulse Ox O2 Del Method O2 Flow Rate Last 24 Hr 97.5 F-98.1 F 63-99 11-21 104-136/66-93 96-100 Room Air-Room Air Intake and Output 03/14/23 03/15/23 03/15/23 19:59 03:59 11:59 Intake Total 654 250 180 Output Total 400 550 375 Balance 254 -300 -195 Weight 69.808 kg Intake & Output: Intake & Output 03/14/23 03/15/23 03/15/23 19:59 03:59 11:59 Intake Total 654 250 180 Output Total 400 550 375 Balance 254 -300 -195 Weight 69.808 kg Intake: IV 250 Dextrose 5% in Water 250 ml @ 250 100 mls/hr IV .Q2[facility] Rx#: [id number] Oral 654 180 Output: Void Amount 400 550 375 Other: Meal Dinner Percent of Meal Consumed 100% Feeding Ability Independent Urine Appearance Clear Clear Clear Urine Color Yellow Yellow Yellow Pale Urine Odor Normal OBJ DATA Labs 03/14/23 04:49 03/15/23 05:15 Labs: Abnormal Lab Results 03/15/23 03/14/23 03/14/23 05:15 19:30 15:15 Hgb Hct Lymph % (Auto) [place] % (Auto) Lymph # (Auto) POC Sodium 128 L 125 L Sodium 126 L POC Chloride 89 L 87 L Chloride 90 L POC BUN 22 H Creatinine POC Creatinine 1.6 H 1.4 H Glucose 113 H POC Glucose 111 H 121 H Osmolality Urine Protein Urine Glucose (UA) Urine RBC Urine Mucus 03/14/23 03/14/23 03/14/23 15:10 04:49 04:49 Hgb 13.3 L Hct 38.4 L Lymph % (Auto) [place] % (Auto) 12.8 H Lymph # (Auto) POC Sodium Sodium 123 L 118 L* POC Chloride Chloride 86 L 84 L POC BUN Creatinine 1.3 H POC Creatinine Glucose 123 H POC Glucose Osmolality Urine Protein Urine Glucose (UA) Urine RBC Urine Mucus 03/13/23 03/13/23 03/13/23 23:23 17:53 11:02 Hgb Hct Lymph % (Auto) [place] % (Auto) Lymph # (Auto) POC Sodium 120 L Sodium 123 L 117 L* POC Chloride 84 L Chloride 85 L 81 L POC BUN Creatinine POC Creatinine 1.4 H Glucose POC Glucose 129 H Osmolality Urine Protein Urine Glucose (UA) Urine RBC Urine Mucus 03/13/23 03/13/23 03/13/23 11:01 10:42 10:42 Hgb Hct 39.9 L Lymph % (Auto) 14.8 L [place] % (Auto) 13.8 H Lymph # (Auto) 0.91 L POC Sodium Sodium 118 L* POC Chloride Chloride 81 L POC BUN Creatinine POC Creatinine Glucose 123 H POC Glucose Osmolality 267 L Urine Protein 100 A Urine Glucose (UA) 50 A Urine RBC 18 H Urine Mucus Few A Meds: Medications Ceftriaxone Sodium (Ceftriaxone 1 Gm Vial) 1 gm IV Q24H [facility]; Protocol Last Admin: 03/14/23 10:15 Dose: 1 gm Diagnostic Test (Pha) (Accu-Chek 1 Each Strip) 1 each FS TIDAC [facility] Last Admin: 03/15/23 07:12 Dose: 1 each Docusate Sodium (Docusate Sodium 100 Mg Capsule) 100 mg PO BID [facility] Last Admin: 03/14/23 20:25 Dose: 100 mg Duloxetine HCl (Duloxetine 20 Mg Capsule) 40 mg PO QDAY [facility] Last Admin: 03/15/23 07:15 Dose: 40 mg Enoxaparin Sodium (Enoxaparin 40 Mg/0.4 Ml Syringe) 40 mg SQ DAILY [facility] Last Admin: 03/14/23 10:15 Dose: 40 mg Lactulose (Lactulose 20 Gm/30 Ml Oral.Afshan) 10 gm PO DAILYP PRN PRN Reason: Constipation Lorazepam (Lorazepam 0.5 Mg Tablet) 0.5 mg PO TIDP PRN PRN Reason: Anxiety Metformin HCl (Metformin 850 Mg Tablet) 850 mg PO BIDCC [facility] Last Admin: 03/15/23 07:12 Dose: 850 mg Ondansetron HCl (Ondansetron 4 Mg/2 Ml Vial) 4 mg IV Q4HP [facility]; Protocol PRN Reason: Nausea And Vomiting Senna (Sennosides 1 Tablet) 2 tab PO HSP PRN PRN Reason: Constipation Simvastatin (Simvastatin 20 Mg Tablet) 20 mg PO HS [facility] Last Admin: 03/14/23 20:25 Dose: 20 mg Sodium Chloride (0.9 % Sodium Chloride 10 Ml Syringe) 10 ml IV Q8 [facility] Last Admin: 03/15/23 05:20 Dose: 10 ml Zolpidem Tartrate (Zolpidem 5 Mg Tablet) 10 mg PO HSP PRN PRN Reason: Insomnia Last Admin: 03/14/23 21:23 Dose: 10 mg A/P Narrative A/P Narrative: A: #SIADH: -There was no component of hypovolemia and IVF did not help as Na dropped slightly to 117. IVF were discontinued -serial sodium check -Continue fluid restriction, and start salt tabs #HTN/HLD: -d/c home HCTZ, restart ACEI if necessary for BP #DM2: -metformin, Continue ISS #CKD III: #Bladder spasm/flank pain -CT abdomen and pelvis unrevealing. Patient remains afebrile with normal WBC of 5.7 -UC negative, d/c empiric ABX -May need to f/u with Urology in outpatient setting for possible bladder spasms #Anxiety: On Ativan #ppx: lovenox Time Spent With Patient Time: Total time spent is greater than 50% in coordination of care (as documented) at patient's floor/unit and/or counseling patient: Subsequent: Total time with patient: 50 - 65 Minutes QUALITY VTE Deep Vein Thrombosis/Pulmonary Embolism Present on Admission: No
[2023-03-15] MEDS: ENOXAPARIN 40 MG/0.4 ML SYRINGE SQ SCH (08:13)
[2023-03-15] MEDS: cefTRIAXone 1 GM VIAL IV SCH (08:48)
[2023-03-15] MEDS: SODIUM CHLORIDE 1 GM TABLET PO SCH ×3 (08:48→21:57)
[2023-03-15] MEDS ORDERED: OPIUM/BELLADONNA ALKALOIDS 30 MG SUPP.RECT PR PRN (10:05)
--- NOTE | 2023-03-15 13:44 | Discharge Summary ---
Discharge Provider Provider IMPORTANT FOLLOW-UP INFORMATION FOR PCP: -Recommend f/u sodium level outpt Patient information: Note initiated : 03/15/23 at 1:42 pm Service Date, if different from initiated Date: [] Patient: Tino Nichols 78 y/o M admitted on 03/13/23 for kidney pain. Chief Complaint: [] Date of admission: 03/13/23 17:22 Discharge date: 03/17/23 Primary care physician: Alexsander Luong Consults: 03/13/23 Consult to Physician [CONS] Stat Comment: Consulting Provider: Anny Wyatt Reason For Exam: Physician to Consult COURSE Hospital Course Hospital course: History of present illness: Mr. Nichols is a 78 year old M with a past medical history significant for BPH, diabetes mellitus type 2, hyperlipidemia, and CKD stage III who presents to the hospital with flank pain, bladder spasms and worsening electrolyte derangements. The patient states that he went to his primary care physician on Wednesday as he was having flank pain and bladder irritation. He had labs and a work-up performed however did not hear back the rest of the week. Last night, the patient experienced severe bladder spasms once again and decided to come into the ER for further management and evaluation. The patient denies any fevers or chills. He denies any hematuria. He states that he has been having to use heat pad continuously and is also taking Tylenol for the discomfort. On arrival he was hemodynamically stable and afebrile. Initial labs revealed a sodium of 118, and a creatinine of 1.4. CT abdomen pelvis is pending. Hospitalist service was asked admit the patient for further management and evaluation of his hyponatremia. 03/14: The patient is quite forgetful and fixates on his home medications. The RN was present at the bedside to discuss plan of care. There are concerns that the patient may have cognitive impairment and undiagnosed dementia. 03/15 Sodium up to 126 today. Fluid restrict and salt tabs. Sounds like patient has been drinking a generous amount of water each day at least a gallon. States slept on and off. But no other new complaints. 03/16 Sodium 128 today. Improving but quite slow. Continue salt tabs fluid restrict. Trial IV fluid and follow-up sodium level early afternoon. 03/17 Patient feeling well today. Sodium continues to improve. sodium up to 131 today. A: #SIADH: #HTN/HLD: -d/c home HCTZ, cont home ACEI #DM2: -metformin, Continue ISS #CKD III: #Bladder spasm/flank pain -May need to f/u with Urology in outpatient setting for possible bladder spasms #Anxiety: On Ativan Discharge diagnosis: Hyponatremia Secondary discharge diagnosis: Bladder spasms diabetes chronic kidney disease hypertension hyperlipidemia Time Spent with Patient Time attestation: Total time spent providing and/or coordinating discharge services: Time spent: Greater than 30 minutes EXAM Constitutional Vitals: Temp Pulse Resp BP Pulse Ox O2 Del Method 97.9 F 80 18 133/76 98 Room Air 03/15/23 12:01 03/15/23 12:01 03/15/23 10:00 03/15/23 12:01 03/15/23 12:01 03/15/23 12:01 Discharge Data Data Completed and Pending Labs on day of discharge: Labs from last 24 hours 03/15/23 03/15/23 03/14/23 05:30 05:15 19:30 POC Hct 41.0 POC Sodium 128 L Sodium 126 L POC Potassium 4.5 Potassium 4.3 POC Chloride 89 L Chloride 90 L Carbon Dioxide 26 POC Total CO2 30.0 Anion Gap 10.0 POC BUN 22 H BUN 17 Creatinine 1.2 POC Creatinine 1.6 H GFR Calculation 57 Glucose 113 H POC Glucose 111 H Uric Acid 5.5 Calcium 9.2 POC WB Ioniz Calcium 1.18 Phosphorus Magnesium Total Bilirubin Direct Bilirubin GGT AST ALT Alkaline Phosphatase Lactate Dehydrogenase Total Protein Albumin Globulin Albumin/Globulin Ratio Triglycerides 03/14/23 03/14/23 03/14/23 15:15 15:10 04:49 POC Hct 45.0 POC Sodium 125 L Sodium 123 L 118 L* POC Potassium 4.3 Potassium 4.3 4.2 POC Chloride 87 L Chloride 86 L 84 L Carbon Dioxide 27 25 POC Total CO2 30.0 Anion Gap 10.0 9.0 POC BUN 20 BUN 18 12 Creatinine 1.3 H 1.2 POC Creatinine 1.4 H GFR Calculation 52 57 Glucose 123 H 101 POC Glucose 121 H Uric Acid 5.3 Calcium 9.4 9.1 POC WB Ioniz Calcium 1.17 Phosphorus 2.8 Magnesium 1.6 Total Bilirubin 0.4 Direct Bilirubin < 0.2 GGT 12 AST 21 ALT 14 Alkaline Phosphatase 51 Lactate Dehydrogenase 142 Total Protein 6.3 Albumin 3.7 Globulin 2.6 Albumin/Globulin Ratio 1.4 Triglycerides 65 Discharge Plan Patient/Caregiver Discharge Instructions Activity: increase activity as tolerated Diet: Consistent Carbohydrate Instructions: Benazepril (By mouth), Hyponatremia (GEN), 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 Prescriptions: New benazepril 20 mg tablet 20 mg PO QDAY Qty: 30 0RF sodium chloride 1,000 mg Tablet,Soluble 1 gm PO BID Qty: 14 0RF Continued (DME) lancets [VaioniTouch Delica Lancets] 30 gauge misc See Dose Instructions .ROUTE .MEDSUPPLY Qty: 100 4RF Dose Instruction: As directed Rx Instructions: Use to test blood sugar twice dialy. zolpidem 10 mg tablet 10 mg PO QHS PRN (Reason: insomnia) Qty: 60 3RF metformin 850 mg tablet 850 mg PO BID Qty: 180 3RF pravastatin 40 mg tablet 40 mg PO QHS Qty: 90 3RF (DME) blood sugar diagnostic [Fix8uch Verio test strips] strip See Dose Instructions .ROUTE .MEDSUPPLY Qty: 100 4RF Dose Instruction: As directed Rx Instructions: Use to test blood sugars twice daily. (DME) blood-glucose meter [Fix8uch Verio IQ Meter] kit See Dose Instructions .ROUTE .MEDSUPPLY Qty: 1 0RF Dose Instruction: As directed Rx Instructions: As directed lorazepam 0.5 mg tablet 0.5 mg PO TIDP PRN (Reason: Anxiety) duloxetine 20 mg capsule,delayed release(DR/EC) 40 mg PO QDAY Discontinued benazepril-hydrochlorothiazide 20-12.5 mg tablet 1 tab PO QDAY Qty: 90 3RF Rx Instructions: New dose Follow Up Plan Follow up with: Alexsander Luong MD [Primary Care Provider] - 03/25/23 8:30 am (Please arrive 15 minutes early) Patient Disposition: Home, Self-Care Prognosis: Fair Overall status at discharge: patient is progressing back to baseline Discharge Orders: Discharge Order (Routine); Ordered 03/17/23 Ordered By: Alex Neil [facility] VTE Deep Vein Thrombosis/Pulmonary Embolism Present on Admission: No
[2023-03-15 18:10] LABS: POC Calcium, Ionized 1.21 (1.16-1.32); POC Creatinine 1.4 (0.6-1.2); POC Potassium 4.4 (3.3-5.1)
[2023-03-15] MEDS: SIMVASTATIN 20 MG TABLET PO SCH (21:57)
[2023-03-15] MEDS: ZOLPIDEM 5 MG TABLET PO PRN (22:02)
[2023-03-16] MEDS: 0.9 % SODIUM CHLORIDE 10 ML SYRINGE IV SCH ×3 (05:04→20:32)
[2023-03-16] MEDS: metFORMIN 850 MG TABLET PO SCH ×2 (07:40→16:43)
[2023-03-16] MEDS: DULoxetine 20 MG CAPSULE PO SCH (07:47)
[2023-03-16] MEDS: cefTRIAXone 1 GM VIAL IV SCH (07:47)
[2023-03-16] MEDS: ENOXAPARIN 40 MG/0.4 ML SYRINGE SQ SCH (07:47)
[2023-03-16] MEDS: SODIUM CHLORIDE 1 GM TABLET PO SCH ×3 (07:47→20:30)
[2023-03-16] MEDS: DOCUSATE SODIUM 100 MG CAPSULE PO SCH ×2 (07:48→20:30)
[2023-03-16 07:49] LABS: Blood Urea Nitrogen 18 mg/dL (8-23); Calcium 9.3 mg/dL (8.6-10.4); Carbon Dioxide 23 mmol/L (22-30); Chloride 94 mmol/L (96-108); Glomerular Filtration Rate 57; Glucose 104 mg/dL (70-105)
--- NOTE | 2023-03-16 08:26 | Internal Med Progress Note ---
SUBJECTIVE Subjective Patient information: Note initiated : 03/16/23 at 8:26 am Service Date, if different from initiated Date: [] Patient: Tino Nichols a 78 y/o M admitted on 03/13/23 for kidney pain. Chief Complaint: [] Principal diagnosis: SIADH Interval history: History of present illness: Mr. Nichols is a 78 year old M with a past medical history significant for BPH, diabetes mellitus type 2, hyperlipidemia, and CKD stage III who presents to the hospital with flank pain, bladder spasms and worsening electrolyte derangements. The patient states that he went to his primary care physician on Wednesday as he was having flank pain and bladder irritation. He had labs and a work-up performed however did not hear back the rest of the week. Last night, the patient experienced severe bladder spasms once again and decided to come into the ER for further management and evaluation. The patient denies any fevers or chills. He denies any hematuria. He states that he has been having to use heat pad continuously and is also taking Tylenol for the discomfort. On arrival he was hemodynamically stable and afebrile. Initial labs revealed a sodium of 118, and a creatinine of 1.4. CT abdomen pelvis is pending. Hospitalist service was asked admit the patient for further management and evaluation of his hyponatremia. 03/14: The patient is quite forgetful and fixates on his home medications. The RN was present at the bedside to discuss plan of care. There are concerns that the patient may have cognitive impairment and undiagnosed dementia. 03/15 Sodium up to 126 today. Fluid restrict and salt tabs. Sounds like patient has been drinking a generous amount of water each day at least a gallon. States slept on and off. But no other new complaints. 03/16 Sodium 128 today. Improving but quite slow. Continue salt tabs fluid restrict. Trial IV fluid and follow-up sodium level early afternoon. Review of Systems: denies headache/fever/chills/nausea/vomiting/chest or abdominal pain/cough/dyspnea/diarrhea. Otherwise see above. PHYSICAL EXAM General: Alert, Awake, No acute Distress Eyes/N/T: EOMI, no scleral icterus, Head/Neck: neck supple, full ROM, CV: RRR, No murmurs, Pulm: Clear b/l, no wheezing/rhonchi/rales, no respiratory distress Abd: soft, nontender, +BS x4 Ext: no clubbing/cyanosis/edema, nontender Neuro: Alert, no focal deficits, moves all extremities, , sensations intact b/l upper/lower Psychiatric: Skin: warm/dry, normal color Constitutional Vitals: Vital Signs Temp Pulse Resp BP Pulse Ox O2 Del Method 98.0 F 75 17 161/90 100 Room Air 03/16/23 08:01 03/16/23 08:01 03/16/23 08:01 03/16/23 08:01 03/16/23 08:01 03/16/23 08:01 Period Temp Pulse Resp BP Sys/Bush Pulse Ox O2 Del Method O2 Flow Rate Last 24 Hr 97.9 F-98.3 F 70-106 11-20 120-161/74-91 88-100 Room Air-Room Air Intake and Output 03/15/23 03/16/23 03/16/23 19:59 03:59 11:59 Intake Total 340 300 570 Output Total 200 625 Balance 140 300 -55 Weight 70.216 kg Intake & Output: Intake & Output 03/15/23 03/16/23 03/16/23 19:59 03:59 11:59 Intake Total 340 300 570 Output Total 200 625 Balance 140 300 -55 Weight 70.216 kg Intake: Oral 340 300 570 Output: Void Amount 200 625 Other: Meal Dinner Percent of Meal Consumed 100% Feeding Ability Independent Urine Appearance Clear Clear Urine Color Yellow Yellow Urine Odor Normal # Voids 1 # Bowel Movements 1 OBJ DATA Labs 03/14/23 04:49 03/16/23 05:14 Labs: Abnormal Lab Results 03/16/23 03/15/23 03/15/23 05:14 18:06 05:15 Hgb Hct Lymph % (Auto) [place] % (Auto) Lymph # (Auto) POC Sodium 131 L Sodium 128 L 126 L POC Chloride 93 L Chloride 94 L 90 L POC BUN 21 H Creatinine POC Creatinine 1.4 H Glucose 113 H POC Glucose 107 H Osmolality Urine Protein Urine Glucose (UA) Urine RBC Urine Mucus 03/14/23 03/14/23 03/14/23 19:30 15:15 15:10 Hgb Hct Lymph % (Auto) [place] % (Auto) Lymph # (Auto) POC Sodium 128 L 125 L Sodium 123 L POC Chloride 89 L 87 L Chloride 86 L POC BUN 22 H Creatinine 1.3 H POC Creatinine 1.6 H 1.4 H Glucose 123 H POC Glucose 111 H 121 H Osmolality Urine Protein Urine Glucose (UA) Urine RBC Urine Mucus 03/14/23 03/14/23 03/13/23 04:49 04:49 23:23 Hgb 13.3 L Hct 38.4 L Lymph % (Auto) [place] % (Auto) 12.8 H Lymph # (Auto) POC Sodium Sodium 118 L* 123 L POC Chloride Chloride 84 L 85 L POC BUN Creatinine POC Creatinine Glucose POC Glucose Osmolality Urine Protein Urine Glucose (UA) Urine RBC Urine Mucus 03/13/23 03/13/23 03/13/23 17:53 11:02 11:01 Hgb Hct Lymph % (Auto) [place] % (Auto) Lymph # (Auto) POC Sodium 120 L Sodium 117 L* POC Chloride 84 L Chloride 81 L POC BUN Creatinine POC Creatinine 1.4 H Glucose POC Glucose 129 H Osmolality Urine Protein 100 A Urine Glucose (UA) 50 A Urine RBC 18 H Urine Mucus Few A 03/13/23 03/13/23 10:42 10:42 Hgb Hct 39.9 L Lymph % (Auto) 14.8 L [place] % (Auto) 13.8 H Lymph # (Auto) 0.91 L POC Sodium Sodium 118 L* POC Chloride Chloride 81 L POC BUN Creatinine POC Creatinine Glucose 123 H POC Glucose Osmolality 267 L Urine Protein Urine Glucose (UA) Urine RBC Urine Mucus Meds: Medications Belladonna Alkaloids/Opium (Opium/Belladonna Alkaloids 30 Mg Supp.Rect) 30 mg TN Q4HP PRN PRN Reason: BLADDER SPASMS Ceftriaxone Sodium (Ceftriaxone 1 Gm Vial) 1 gm IV Q24H [facility]; Protocol Last Admin: 03/16/23 07:47 Dose: 1 gm Diagnostic Test (Pha) (Accu-Chek 1 Each Strip) 1 each FS TIDAC [facility] Last Admin: 03/16/23 07:27 Dose: 1 each Docusate Sodium (Docusate Sodium 100 Mg Capsule) 100 mg PO BID [facility] Last Admin: 03/16/23 07:48 Dose: 100 mg Duloxetine HCl (Duloxetine 20 Mg Capsule) 40 mg PO QDAY [facility] Last Admin: 03/16/23 07:47 Dose: 40 mg Enoxaparin Sodium (Enoxaparin 40 Mg/0.4 Ml Syringe) 40 mg SQ DAILY [facility] Last Admin: 03/16/23 07:47 Dose: Not Given Lactulose (Lactulose 20 Gm/30 Ml Oral.Afshan) 10 gm PO DAILYP PRN PRN Reason: Constipation Lorazepam (Lorazepam 0.5 Mg Tablet) 0.5 mg PO TIDP PRN PRN Reason: Anxiety Metformin HCl (Metformin 850 Mg Tablet) 850 mg PO BIDCC [facility] Last Admin: 03/16/23 07:40 Dose: 850 mg Ondansetron HCl (Ondansetron 4 Mg/2 Ml Vial) 4 mg IV Q4HP PRN; Protocol PRN Reason: Nausea And Vomiting Senna (Sennosides 1 Tablet) 2 tab PO HSP PRN PRN Reason: Constipation Last Admin: 03/15/23 11:20 Dose: 2 tab Simvastatin (Simvastatin 20 Mg Tablet) 20 mg PO HS [facility] Last Admin: 03/15/23 21:57 Dose: 20 mg Sodium Chloride (0.9 % Sodium Chloride 10 Ml Syringe) 10 ml IV Q8 [facility] Last Admin: 03/16/23 05:04 Dose: 10 ml Sodium Chloride (Sodium Chloride 1 Gm Tablet) 1 gm PO TID [facility] Last Admin: 03/16/23 07:47 Dose: 1 gm Zolpidem Tartrate (Zolpidem 5 Mg Tablet) 10 mg PO HSP PRN PRN Reason: Insomnia Last Admin: 03/15/23 22:02 Dose: 10 mg A/P Narrative A/P Narrative: A: #?SIADH: -Continue fluid restriction, and start salt tabs -slow to improvement, trial IVF tand f/u labs #HTN/HLD: -d/c home HCTZ, restart ACEI #DM2: -metformin, Continue ISS #CKD III: #Bladder spasm/flank pain -CT abdomen and pelvis unrevealing. Patient remains afebrile with normal WBC of 5.7 -UC negative, d/c empiric ABX -May need to f/u with Urology in outpatient setting for possible bladder spasms #Anxiety: On Ativan #ppx: lovenox Time Spent With Patient Time: Total time spent is greater than 50% in coordination of care (as documented) at patient's floor/unit and/or counseling patient: QUALITY VTE Deep Vein Thrombosis/Pulmonary Embolism Present on Admission: No
[2023-03-16] MEDS: 0.9 % SODIUM CHLORIDE 500 ML IV SCH ×5 (08:34→20:32)
[2023-03-16 14:27] LABS: Blood Urea Nitrogen 15 mg/dL (8-23); Calcium 9.2 mg/dL (8.6-10.4); Carbon Dioxide 30 mmol/L (22-30); Chloride 92 mmol/L (96-108); Glomerular Filtration Rate 63; Glucose 117 mg/dL (70-105)
[2023-03-16] MEDS: SIMVASTATIN 20 MG TABLET PO SCH (20:30)
[2023-03-16] MEDS: ZOLPIDEM 5 MG TABLET PO PRN (20:30)
[2023-03-17] MEDS: 0.9 % SODIUM CHLORIDE 500 ML IV SCH ×3 (02:26→10:54)
--- NOTE | 2023-03-17 06:53 | Internal Med Progress Note ---
SUBJECTIVE Subjective Patient information: Note initiated : 03/17/23 at 6:52 am Service Date, if different from initiated Date: [] Patient: Tino Nichols a 78 y/o M admitted on 03/13/23 for kidney pain. Chief Complaint: [] Principal diagnosis: SIADH Interval history: History of present illness: Mr. Nichols is a 78 year old M with a past medical history significant for BPH, diabetes mellitus type 2, hyperlipidemia, and CKD stage III who presents to the hospital with flank pain, bladder spasms and worsening electrolyte derangements. The patient states that he went to his primary care physician on Wednesday as he was having flank pain and bladder irritation. He had labs and a work-up performed however did not hear back the rest of the week. Last night, the patient experienced severe bladder spasms once again and decided to come into the ER for further management and evaluation. The patient denies any fevers or chills. He denies any hematuria. He states that he has been having to use heat pad continuously and is also taking Tylenol for the discomfort. On arrival he was hemodynamically stable and afebrile. Initial labs revealed a sodium of 118, and a creatinine of 1.4. CT abdomen pelvis is pending. Hospitalist service was asked admit the patient for further management and evaluation of his hyponatremia. 03/14: The patient is quite forgetful and fixates on his home medications. The RN was present at the bedside to discuss plan of care. There are concerns that the patient may have cognitive impairment and undiagnosed dementia. 03/15 Sodium up to 126 today. Fluid restrict and salt tabs. Sounds like patient has been drinking a generous amount of water each day at least a gallon. States slept on and off. But no other new complaints. 03/16 Sodium 128 today. Improving but quite slow. Continue salt tabs fluid restrict. Trial IV fluid and follow-up sodium level early afternoon. Review of Systems: denies headache/fever/chills/nausea/vomiting/chest or abdominal pain/cough/dyspnea/diarrhea. Otherwise see above. PHYSICAL EXAM General: Alert, Awake, No acute Distress Eyes/N/T: EOMI, no scleral icterus, Head/Neck: neck supple, full ROM, CV: RRR, No murmurs, Pulm: Clear b/l, no wheezing/rhonchi/rales, no respiratory distress Abd: soft, nontender, +BS x4 Ext: no clubbing/cyanosis/edema, nontender Neuro: Alert, no focal deficits, moves all extremities, , sensations intact b/l upper/lower Psychiatric: Skin: warm/dry, normal color Constitutional Vitals: Vital Signs Temp Pulse Resp BP Pulse Ox O2 Del Method 97.2 F 65 16 144/80 100 Room Air 03/17/23 03:27 03/17/23 03:27 03/17/23 03:27 03/17/23 03:27 03/17/23 03:27 03/17/23 03:27 Period Temp Pulse Resp BP Sys/Bush Pulse Ox O2 Del Method O2 Flow Rate Last 24 Hr 97.2 F-98.6 F 65-99 14-17 135-167/62-90 98-100 Room Air-Room Air Intake and Output 03/16/23 03/17/23 03/17/23 19:59 03:59 11:59 Intake Total 850 900 500 Output Total 500 Balance 850 900 0 Weight 70.171 kg Intake & Output: Intake & Output 03/16/23 03/17/23 03/17/23 19:59 03:59 11:59 Intake Total 850 900 500 Output Total 500 Balance 850 900 0 Weight 70.171 kg Intake: IV 500 500 500 Sodium Chloride 0.9% 500 ml @ 500 500 500 150 mls/hr IV .Q3H20M [facility] Rx#: [id number] Oral 350 400 Output: Void Amount 500 Other: Feeding Ability Independent Urine Appearance Clear Urine Color Yellow OBJ DATA Labs 03/14/23 04:49 03/16/23 13:04 Labs: Abnormal Lab Results 03/16/23 03/16/23 03/15/23 13:04 05:14 18:06 POC Sodium 131 L Sodium 129 L 128 L POC Chloride 93 L Chloride 92 L 94 L Anion Gap 7.0 L POC BUN 21 H Creatinine POC Creatinine 1.4 H Glucose 117 H POC Glucose 107 H 03/15/23 03/14/23 03/14/23 05:15 19:30 15:15 POC Sodium 128 L 125 L Sodium 126 L POC Chloride 89 L 87 L Chloride 90 L Anion Gap POC BUN 22 H Creatinine POC Creatinine 1.6 H 1.4 H Glucose 113 H POC Glucose 111 H 121 H 03/14/23 03/14/23 15:10 04:49 POC Sodium Sodium 123 L 118 L* POC Chloride Chloride 86 L 84 L Anion Gap POC BUN Creatinine 1.3 H POC Creatinine Glucose 123 H POC Glucose Meds: Medications Belladonna Alkaloids/Opium (Opium/Belladonna Alkaloids 30 Mg Supp.Rect) 30 mg RI Q4HP PRN PRN Reason: BLADDER SPASMS Ceftriaxone Sodium (Ceftriaxone 1 Gm Vial) 1 gm IV Q24H [facility]; Protocol Last Admin: 03/16/23 07:47 Dose: 1 gm Diagnostic Test (Pha) (Accu-Chek 1 Each Strip) 1 each FS TIDAC [facility] Last Admin: 03/16/23 16:39 Dose: 1 each Docusate Sodium (Docusate Sodium 100 Mg Capsule) 100 mg PO BID [facility] Last Admin: 03/16/23 20:30 Dose: 100 mg Duloxetine HCl (Duloxetine 20 Mg Capsule) 40 mg PO QDAY [facility] Last Admin: 03/16/23 07:47 Dose: 40 mg Enoxaparin Sodium (Enoxaparin 40 Mg/0.4 Ml Syringe) 40 mg SQ DAILY [facility] Last Admin: 03/16/23 07:47 Dose: Not Given Sodium Chloride (Sodium Chloride 0.9%) 500 mls @ 150 mls/hr IV .Q3H20M [facility] Last Infusion: 03/17/23 05:59 Dose: Infused Lactulose (Lactulose 20 Gm/30 Ml Oral.Afshan) 10 gm PO DAILYP PRN PRN Reason: Constipation Lisinopril (Lisinopril 20 Mg Tablet) 20 mg PO DAILY [facility] Lorazepam (Lorazepam 0.5 Mg Tablet) 0.5 mg PO TIDP PRN PRN Reason: Anxiety Metformin HCl (Metformin 850 Mg Tablet) 850 mg PO BIDCC [facility] Last Admin: 03/16/23 16:43 Dose: 850 mg Ondansetron HCl (Ondansetron 4 Mg/2 Ml Vial) 4 mg IV Q4HP PRN; Protocol PRN Reason: Nausea And Vomiting Senna (Sennosides 1 Tablet) 2 tab PO HSP PRN PRN Reason: Constipation Last Admin: 03/15/23 11:20 Dose: 2 tab Simvastatin (Simvastatin 20 Mg Tablet) 20 mg PO HS [facility] Last Admin: 03/16/23 20:30 Dose: 20 mg Sodium Chloride (0.9 % Sodium Chloride 10 Ml Syringe) 10 ml IV Q8 [facility] Last Admin: 03/16/23 20:32 Dose: Not Given Sodium Chloride (Sodium Chloride 1 Gm Tablet) 1 gm PO TID [facility] Last Admin: 03/16/23 20:30 Dose: 1 gm Zolpidem Tartrate (Zolpidem 5 Mg Tablet) 10 mg PO HSP PRN PRN Reason: Insomnia Last Admin: 03/16/23 20:30 Dose: 10 mg A/P Narrative A/P Narrative: A: #SIADH: -Continue fluid restriction, and start salt tabs -slow to improvement, #HTN/HLD: -d/c home HCTZ, restarted ACEI #DM2: -metformin, Continue ISS #CKD III: #Bladder spasm/flank pain -CT abdomen and pelvis unrevealing. Patient remains afebrile with normal WBC of 5.7 -UC negative, d/c empiric ABX -May need to f/u with Urology in outpatient setting for possible bladder spas ms #Anxiety: On Ativan #ppx: lovenox Time Spent With Patient Time: Total time spent is greater than 50% in coordination of care (as documented) at patient's floor/unit and/or counseling patient: Subsequent: Total time with patient: 50 - 65 Minutes QUALITY VTE Deep Vein Thrombosis/Pulmonary Embolism Present on Admission: No
[2023-03-17 07:00] LABS: Blood Urea Nitrogen 13 mg/dL (8-23); Calcium 8.8 mg/dL (8.6-10.4); Carbon Dioxide 26 mmol/L (22-30); Chloride 97 mmol/L (96-108); Glomerular Filtration Rate 80; Glucose 111 mg/dL (70-105)
[2023-03-17] MEDS: DULoxetine 20 MG CAPSULE PO SCH (08:03)
[2023-03-17] MEDS: SODIUM CHLORIDE 1 GM TABLET PO SCH (08:18)
[2023-03-17] MEDS: metFORMIN 850 MG TABLET PO SCH (08:18)
[2023-03-17] MEDS: DOCUSATE SODIUM 100 MG CAPSULE PO SCH (08:18)
[2023-03-17] MEDS: ENOXAPARIN 40 MG/0.4 ML SYRINGE SQ SCH (08:19)
[2023-03-17] MEDS: 0.9 % SODIUM CHLORIDE 10 ML SYRINGE IV SCH (08:37)
[2023-03-17] MEDS: cefTRIAXone 1 GM VIAL IV SCH (08:42)
[2023-03-17] MEDS ORDERED: LISINOPRIL 20 MG TABLET PO SCH (09:00)
== END 2023-03-17 09:40 | disposition home or self-care (01) | DRG 641 ==
LOC: ED 10:12 → ICU 17:15 → MEDSUR 03-16 11:58
PROVIDERS: ADMIT Student in an Organized Health Care Education/Training Program; ATTEND Internal Medicine